=== PATIENT | male | born 1980 | race Caucasian/White ===

== ENCOUNTER 2021-06-17 19:17 | Emergency (ER) | payer OTHER ==
[~2021-06-17] VITALS: Ht 188 cm; Wt 100.1 kg
[2021-06-17 19:25] VITALS: BP 130/82
[2021-06-17] MEDS ORDERED: CEPH500T PO (20:00)
--- NOTE | 2021-06-17 20:02 | PHYS DOC ---
Adult General Chief Complaint Chief Complaint: FINGER INJURY HPI HPI Patient is a 40-year-old male who presents with left second proximal digit laceration secondary to a steak knife that went through the anterior proximal pad of the other side about an hour before coming into the ED that he was trying to cut meat. States he needs his tetanus vaccination as he cannot remember what his last 1 was. Denies any other injuries. Review of Systems Review of Systems Review of systems otherwise unremarkable except noted in HPI Allergies Allergies Allergies Coded Allergies Type Severity Reaction Last Updated Verified No Known Drug Allergies 06/17/21 No Physical Exam Physical Exam Constitutional: Well developed, well nourished, no acute distress, non-toxic appearance. [] Skin: Warm, dry, no erythema, no rash. [] Extremities: Mild tenderness and swelling around the proximal pad of the left second digit with a 1 cm laceration bilaterally, through and through from a steak knife, bleeding controlled, neurovascular exam intact Neurologic: Alert and oriented X 3, normal motor function, normal sensory function, no focal deficits noted. [] Psychologic: Affect normal, judgement normal, mood normal. [] EKG EKG [] Radiology/Procedures Radiology/Procedures [] Heart Score C/O Chest Pain: No Risk Factors: Risk Factors: DM, Current or recent (<one month) smoker, HTN, HLP, family history of CAD, obesity. Risk Scores: Risk Factors: DM, Current or recent (<one month) smoker, HTN, HLP, family history of CAD, obesity. Course & Med Decision Making Course & Med Decision Making Patient is a 40-year-old male who presents with finger laceration Vital signs not concerning. Physical exam noted above. Wound cleaned. Digital block performed with 3 mils of bupivacaine. 4 sutures placed of 4-0 Ethilon. Patient tolerated procedure well. Cleaned and bandaged. Updated tetanus. Started on antibiotics. Gave return precautions to the ED. Gave wound care instructions. Patient grateful, verbalized understanding and agreed with plan of discharge. [] Dragon Disclaimer Dragon Disclaimer This electronic medical record was generated, in whole or in part, using a voice recognition dictation system. Departure Departure: Impression: Primary Impression: Finger laceration Disposition: HOME / SELF CARE / HOMELESS Condition: GOOD Referrals: CORNELIO SALAS Patient Instructions: Laceration Care, Adult, Sutured Wound Care, [id number] Additional Instructions: Thank you for coming into the emergency department tonight and allowing us to take care of you. Please read the attached information carefully to go back o robby things we discussed. Your tetanus was updated today. Your wound was cleaned and sutured. In 24 hours please begin a regimen of changing the Band- Aids twice a daily and washing the areas with warm soapy water. Please wear your splint as did not pull open your wound or dislodged your stitches. Please call your primary care physician on Sunday to update on ED visit and set up a follow-up in 5 to 7 days for a wound check and suture removal. Please come back to the ED with new or concerning symptoms as discussed. Scripts Cephalexin (CEPHALEXIN) 500 Mg Tablet 1 TAB PO TID for wound for 7 Days, #21 TAB Prov: JACY MAYFIELD MD 06/17/21 JACY MAYFIELD MD Jun 17, 2021 20:02
[2021-06-17] MEDS: CEPHALEXIN 250 MG CAPSULE PO ONE (20:10)
[2021-06-17] MEDS: DIPH,PERTUSS(ACELL),TET VAC/PF 0.5 ML SYRINGE. VAX IM ONE (20:11)
== END 2021-06-17 21:06 | disposition home or self-care (01) ==
LOC: ER 19:17
DX: S61.211A Laceration without foreign body of left index finger without damage to nail, initial encounter (principal); W26.0XXA Contact with knife, initial encounter; Y93.89 Activity, other specified; Y92.89 Other specified places as the place of occurrence of the external cause; Y99.8 Other external cause status
CPT/HCPCS: 12001; 29130; 90471; 90715; 99283-25

== ENCOUNTER 2021-09-16 08:55 | Emergency (ER) | payer OTHER ==
[~2021-09-16 08:55] MED LIST: CEPH500T PO
--- NOTE | 2021-09-16 09:13 | PHYS DOC ---
Past History Additional Past Medical Histor: chronic neck and shoulder pain Past Surgical History: No Surgical History Alcohol Use: Rarely Adult General Chief Complaint Chief Complaint: SHOULDER INJURY HPI HPI Patient is a 41-year-old male presenting for right upper extremity issues. This is a chronic issue. Denies any trauma falls mechanism of injury or other night exacerbation. States he has chronic neck issues which he has seen his primary care in the past for. Reports 10 days ago without issue having increased pain with certain ranges of motion of right anterior shoulder and right elbow. He has not been taking anything for pain control. States that he tried to call his primary care physician to be seen for evaluation today but she was not in office so he came here for evaluation. No changes in motor or sensory or neuro function Review of Systems Review of Systems Fourteen body systems of review of systems have been reviewed. See HPI for pertinent positives and negative responses, other ontiveros all other systems are negative, non-pertinent or non-contributory Allergies Allergies Allergies Coded Allergies Type Severity Reaction Last Updated Verified No Known Drug Allergies 06/17/21 No Physical Exam Physical Exam Constitutional: Well developed, well nourished, no acute distress, non-toxic appearance. HENT: Normocephalic, atraumatic, bilateral external ears normal, oropharynx moist, no oral exudates, nose normal. Eyes: PERRLA, EOMI, conjunctiva normal, no discharge. Neck: Normal range of motion, no tenderness, supple, no stridor. Cardiovascular: Heart rate regular, sinus rhythm, no murmurs rubs or gallops Lungs & Thorax: Bilateral breath sounds clear to auscultation Abdomen: Bowel sounds normal, soft, no tenderness, no masses, no pulsatile masses. Nonsurgical abdomen, no peritoneal signs Skin: Warm, dry, no erythema, no rash. Back: No tenderness, no CVA tenderness. Extremities: No tenderness, no cyanosis, no clubbing, ROM intact, no edema. Neurologic: Alert and oriented X 3, grossly normal motor & sensory function, no focal deficits noted. Psychologic: Affect normal, judgement normal, mood normal. EKG EKG [] Radiology/Procedures Radiology/Procedures EXAM: 3 Views right Shoulder, 3 views of the right elbow DATE: 09/16/2021 9:13 AM INDICATION: Reason: Right shoulder and elbow pain / Spl. Instructions: / History: COMPARISON: No Prior FINDINGS: Right shoulder: There is no evidence for acute fracture or dislocation. AC joint is congruent. No significant degenerative changes. Humeral head is not high riding. Right elbow: No elbow joint effusion. No acute fracture or dislocation. No significant degenerative changes. No significant soft tissue swelling. IMPRESSION: 1. No acute fracture or dislocation. Electronically signed by: Eliezer Moyer DO (09/16/2021 9:24 AM) [id number] Heart Score C/O Chest Pain: No Risk Factors: Risk Factors: DM, Current or recent (<one month) smoker, HTN, HLP, family history of CAD, obesity. Risk Scores: Risk Factors: DM, Current or recent (<one month) smoker, HTN, HLP, family history of CAD, obesity. Course & Med Decision Making Course & Med Decision Making ABCs unremarkable HPI physical exam and comprehensive ER work-up nonconcerning for any emergent or surgical issues I reviewed physical exam and radiograph findings were negative for acute process with patient. Close outpatient follow-up and supportive care practices advised Chris Disclaimer Chris Disclaimer This electronic medical record was generated, in whole or in part, using a voice recognition dictation system. Departure Departure: Impression: Primary Impression: Right arm pain Disposition: HOME / SELF CARE / HOMELESS Condition: STABLE Referrals: CORNELIO SALAS (PCP) Additional Instructions: As discussed prior to ER departure, your vitals, physical exam and ER work-up consisting of radiographs of right upper extremity were nonconcerning for any emergent or surgical issues. As disclosed, please continue good supportive care practices, range of motion and stretching exercises outpatient follow-up to review ER visit today and need for further diagnostic work-up in outpatient setting. Any concerning signs or symptoms present prior to outpatient follow-up please do not hesitate to come back for repeat evaluation. It is a pleasure to take care of you and I wish you the best going forward GUEVARA LAU DO Sep 16, 2021 09:13
--- NOTE | 2021-09-16 09:26 | RAD ---
EXAM: 3 Views right Shoulder, 3 views of the right elbow DATE: 09/16/2021 9:13 AM INDICATION: Reason: Right shoulder and elbow pain / Spl. Instructions: / History: COMPARISON: No Prior FINDINGS: Right shoulder: There is no evidence for acute fracture or dislocation. AC joint is congruent. No significant degener ative changes. Humeral head is not high riding. Right elbow: No elbow joint effusion. No acute fracture or dislocation. No significant degenerative changes. No si gnificant soft tissue swelling. IMPRESSION: 1. No acute fracture or dislocation. Electronically signed by: Eliezer Moyer DO (09/16/2021 9:24 AM) [id number]
== END 2021-09-16 10:14 | disposition home or self-care (01) ==
LOC: ER 08:55
DX: M25.511 Pain in right shoulder (principal); M25.521 Pain in right elbow; G89.29 Other chronic pain
CPT/HCPCS: 73030; 73080; 99284

== ENCOUNTER 2021-12-05 19:50 | Emergency (ER) | payer OTHER ==
[~2021-12-05] VITALS: Ht 188 cm; Wt 104.0 kg
--- NOTE | 2021-12-05 19:57 | PHYS DOC ---
Past History Additional Past Medical Histor: chronic neck and shoulder pain Past Surgical History: No Surgical History Alcohol Use: Rarely Adult General HPI HPI Patient is a 41-year-old male who presents with acute on chronic back pain, 7 out of 10, dull and achy in nature with no radiation. States he has had back pain for years off and on and is already on muscle relaxers for this. States over the last day or so he has had increased pain in his lower back bilaterally with some muscle spasms. Denies any recent travels, traumas, illnesses, fevers, surgeries, chest pain, shortness of breath, abdominal pain, nausea, vomiting, diarrhea. Denies any new numbness/weakness/tingling. Denies any trouble sitting, standing or walking. States he took some ibuprofen earlier in the day. Review of Systems Review of Systems Review of systems otherwise unremarkable except noted in HPI Allergies Allergies Allergies Coded Allergies Type Severity Reaction Last Updated Verified No Known Drug Allergies 06/17/21 No Physical Exam Physical Exam Constitutional: Well developed, well nourished, no acute distress, non-toxic appearance. [] HENT: Normocephalic, atraumatic, Eyes: conjunctiva normal, no discharge. [] Neck: Normal range of motion, no tenderness, Cardiovascular:Heart rate regular rhythm, no murmur [] Lungs & Thorax: No respiratory distress Abdomen:soft, no tenderness, no masses, no pulsatile masses. [] Skin: Warm, dry, no erythema, no rash. [] Back: Tenderness bilaterally around lumbar spine with no midline deformities, step-offs, bruising Extremities: No tenderness, no cyanosis, no clubbing, ROM intact, no edema. [] Neurologic: Alert and oriented X 3, normal motor function, normal sensory function, able to sit, stand and walk without issue, no focal deficits noted. [] Psychologic: Affect normal, judgement normal, mood normal. [] EKG EKG [] Radiology/Procedures Radiology/Procedures [] Heart Score C/O Chest Pain: No Risk Factors: Risk Factors: DM, Current or recent (<one month) smoker, HTN, HLP, family history of CAD, obesity. Risk Scores: Risk Factors: DM, Current or recent (<one month) smoker, HTN, HLP, family history of CAD, obesity. Course & Med Decision Making Course & Med Decision Making Patient is a 41-year-old male who presents with acute on chronic back pain Vital signs notable for hypertension. Physical exam noted above. Given medica tions for pain in the ED. Discussed symptom management at home. Given work note for tomorrow. Advised to follow-up in the morning with primary care physician to discuss need for MRI and follow-up visit Gave return precautions to the ED. Patient grateful, verbalized understanding and agreed with plan of discharge. [] Dragon Disclaimer Dragon Disclaimer This electronic medical record was generated, in whole or in part, using a voice recognition dictation system. Departure Departure: Impression: Primary Impression: Acute exacerbation of chronic low back pain Disposition: HOME / SELF CARE / HOMELESS Condition: STABLE Referrals: CORNELIO SALAS (PCP) Patient Instructions: Back Pain, Adult Additional Instructions: Thank you for coming into the emergency department tonight and allowing us to take care of you. Please read the attached information carefully go over things we discussed. You can continue Tylenol, ibuprofen, Benadryl and ice and/or heat as needed. Please take your muscle relaxers as prescribed and as needed. Please be careful not to exacerbate your back pain more with strenuous exercises or lifting objects. Please follow-up with your primary care physician as soon as you can update on ED visit and set up a follow-up appointment for reevaluation and discussion of need for advanced imaging such as MRI. Please begin a regimen of 1000 mg of Tylenol every 8 hours, 800 mg of ibuprofen every 8 hours, 50 mg of Benadryl every 6 hours and your home muscle relaxers as prescribed as tolerated as long as you are not allergic. Please come back with new or concerning symptoms as discussed. JACY MAYFIELD MD Dec 05, 2021 19:57
[2021-12-05] MEDS ORDERED: KETOROLAC 15 MG/ML VIAL. IM ONE (20:15)
[2021-12-05] MEDS ORDERED: oxyCODONE/APAP 5/325 1 TAB TABLET PO ONE (20:15)
[2021-12-05 21:00] VITALS: BP 134/85
== END 2021-12-05 20:05 | disposition home or self-care (01) ==
LOC: ER 19:50
DX: G89.29 Other chronic pain (principal); M54.50 Low back pain, unspecified
CPT/HCPCS: 96372; 99283; J1885

== ENCOUNTER → 2021-12-08 | Outpatient (CLI) | payer OTHER ==
[2021-12-05 21:00] VITALS: BP 134/85
--- NOTE | 2021-12-08 11:43 | RAD ---
Study: XR CERVICAL SPINE 4-5V Indication: Neck pain. Comparison: None. Findings: Straightening of cervical lordosis. Maintained vertebral body and disc space height. No significant l isthesis. No widening at the atlantodental interval. Intact dens. Normal C1-C2 lateral mass alignment . Minimal uncovertebral joint hypertrophy such as on the left at C3-C4. No advanced facet arthrosis. Apparent osseous neural foraminal narrowing on the left at C3-C4 more so than C4-C5 and on the right at C2-C3 and C3-C4 more so than C4-C5. Mild ligamentum nuchae ossification at the level of the C6 spi nous process. Normal thickness of the prevertebral soft tissues. Partially imaged odontogenic disease with dental c ness. Unremarkable lung apices with a possible granuloma on the left. Impression: 1. No advanced cervical spondylosis or radiographic evidence for an acute fracture. There appears to be osseous neural foraminal narrowing at a few levels on both the right and left, as noted above, tho ugh favored at least in part artifactual from incomplete obliquity given the absence of significant f acet arthrosis or uncovertebral joint hypertrophy. 2. Partially imaged odontogenic disease with dental caries. Electronically signed by: ANGLE TILLEY MD (12/08/2021 11:22 AM) [id number]
== END ==
LOC: RAD 10:10
PROVIDERS: ATTEND Internal Medicine
DX: G89.29 Other chronic pain (principal); K08.9 Disorder of teeth and supporting structures, unspecified; M48.02 Spinal stenosis, cervical region; M48.8X2 Other specified spondylopathies, cervical region
CPT/HCPCS: 72050